=== PATIENT | male | born 1945 | race Caucasian/White ===

== ENCOUNTER 2018-12-11 03:55 | Inpatient (IN) | payer OTHER ==
[2018-12-11 04:18] VITALS: BMI 28.3
[2018-12-11] MEDS ORDERED: ACETAMINOPHEN 1000 MG/100 ML VIAL (NON FORMULARY) IVPB ONE (04:26)
[2018-12-11] MEDS ORDERED: ACETAMINOPHEN INJECTION 100 ML IVPB ONE (04:50)
[2018-12-11 04:55] LABS: BASO % 0.3 % (0-2.0); EOS % 0.2 % (0-4.5); HEMATOCRIT 41.8 % (35.4-49); HEMOGLOBIN 13.6 GM/dL (11.7-16.9); LYMPH % 11.9 % (8-40); MCH 30.1 pg (25.7-33.7); MCHC 32.7 g/dl (32.0-35.9); MEAN CELL VOLUME 92.3 fl (80-96); MEAN PLT VOLUME 7.7 fl (7.5-11.1); NEUT % 82.6 % (42.8-82.8); PLATELET COUNT 260 K/MM3 (134-434); RBC 4.53 M/mm3 (4.00-5.60); RDW 13.5 % (11.9-15.9); WHITE BLOOD COUNT 11.1 K/mm3 (4.0-10.0)
[2018-12-11 05:08] LABS: INR 0.9 (0.83-1.09); PROTHROMBIN TIME (PATIENT) 10.6 SEC (9.7-13.0)
[2018-12-11 05:18] LABS: ALK PHOS 51 U/L (45-117); ANION GAP 11 MMOL/L (8-16); BILIRUBIN,TOTAL 0.3 mg/dL (0.2-1); BLOOD UREA NITROGEN 25 mg/dL (7-18); CHLORIDE 106 mmol/L (98-107); CO2 21 mmol/L (21-32); CREATININE 1.5 mg/dL (0.55-1.3); GLUCOSE,RANDOM 226 mg/dL (74-106); LIPASE 151 U/L (73-393); SGOT/AST 19 U/L (15-37); SGPT/ALT 24 U/L (13-61); SODIUM 138 mmol/L (136-145)
[2018-12-11] MEDS ORDERED: SODIUM CHLORIDE 0.9% 1000 ML INFUS.BAG IV ONE (05:29)
--- NOTE | 2018-12-11 05:41 | PDOC ---
History of Present Illness - General Chief Complaint: Pain, Acute Stated Complaint: LOWER ABD PAIN Time Seen by Provider: 12/11/18 04:16 History Source: Patient Exam Limitations: No Limitations - History of Present Illness Initial Comments: 12/11/18 05:36 73M with PMH of HTN and DM who presents to the ER with complaints of sudden onset LLQ abdominal pain. The patient describes a sharp pain, radiating to his pelvis, without any exacerbating or alleviating factors. He denies nausea, vomiting, fever, chills, melena, hematochezia. He admits to having a cholecystectomy. Past History - Past Medical History Allergies/Adverse Reactions: Allergies Allergy/AdvReac Type Severity Reaction Status Date / Time No Known Allergies Allergy Verified 12/11/18 04:07 Home Medications: Ambulatory Orders Aspirin [Aspirin EC] 81 mg PO DAILY 12/11/18 Finasteride 5 mg PO DAILY 12/11/18 Losartan Potassium [Cozaar -] 50 mg PO DAILY 12/11/18 Metformin HCl [Glucophage] 1,000 mg PO DAILY 12/11/18 Rosuvastatin Calcium [Crestor] 10 mg PO DAILY 12/11/18 Tamsulosin HCl [Flomax] 0.4 mg PO DAILY 12/11/18 COPD: No - Immunization History Immunization Up to Date: (Unknown) - Suicide/Smoking/Psychosocial Hx Smoking History: Never smoked Have you smoked in the past 12 months: No Information on smoking cessation initiated: No Hx Alcohol Use: No Drug/Substance Use Hx: No Review of Systems - Review of Systems Able to Perform ROS?: Yes Comments:: 12/11/18 05:38 GENERAL/CONSTITUTIONAL: No fever or chills. No weakness. HEAD, EYES, EARS, NOSE AND THROAT: No change in vision. No ear pain or discharge. No sore throat. CARDIOVASCULAR: No chest pain, palpitations, or lightheadedness. RESPIRATORY: No cough, wheezing, shortness of breath, or hemoptysis. GASTROINTESTINAL: + for abdominal pain. No nausea, vomiting, diarrhea, or constipation. GENITOURINARY: No dysuria, frequency, hematuria, or change in urination. MUSCULOSKELETAL: No joint or muscle swelling or pain. No neck or back pain. SKIN: No rash or lesions. NEUROLOGIC: No headache, numbness, tingling, focal weakness, loss of consciousness, or change in strength/sensation. Is the patient limited Armenian proficient: No *Physical Exam - Vital Signs Last Vital Signs Temp Pulse Resp BP Pulse Ox 98.1 F 70 22 H 141/61 99 12/11/18 04:04 12/11/18 04:04 12/11/18 04:04 12/11/18 04:04 12/11/18 04:04 - Physical Exam Comments: 12/11/18 05:38 GENERAL: Well developed, well nourished. Awake and alert. No acute distress. HEENT: Normocephalic, atraumatic. Hearing grossly normal. Moist mucous membranes. PERRLA, EOMI. No conjunctival pallor. Sclera are non-icteric. NECK: Supple. Full ROM. No JVD. CARDIOVASCULAR: Regular rate and rhythm. No murmurs, rubs, or gallops. PULMONARY: No evidence of respiratory distress. Lungs clear to auscultation bilaterally. No wheezing, rales or rhonchi. ABDOMINAL: Soft. Diffusely tender, mostly in LLQ. Non-distended. No rebound or guarding. GENITOURINARY: No CVA tenderness bilaterally. MUSCULOSKELETAL: Normal range of motion at all joints. No bony deformities or tenderness. EXTREMITIES: No cyanosis. No clubbing. No edema. No calf tenderness or swelling. SKIN: Warm and dry. Normal capillary refill. No rashes. No jaundice. NEUROLOGICAL: Alert, awake, appropriate. Cranial nerves 2-12 grossly intact. Normal speech. Gait is normal without ataxia. PSYCHIATRIC: Cooperative. Good eye contact. Appropriate mood and affect. ED Treatment Course - LABORATORY CBC & Chemistry Diagram: 12/13/18 06:05 12/13/18 06:05 - ADDITIONAL ORDERS Additional order review: Laboratory Results 12/11/18 12/11/18 12/11/18 04:37 04:37 04:37 PT with INR 10.60 INR 0.90 Sodium 138 Potassium 4.0 Chloride 106 Carbon Dioxide 21 Anion Gap 11 BUN 25 H Creatinine 1.5 H Creat Clearance w eGFR 46.13 Random Glucose 226 H Lactic Acid 5.0 H* Calcium 9.0 Total Bilirubin 0.3 AST 19 ALT 24 Alkaline Phosphatase 51 Total Protein 7.0 Albumin 4.0 Lipase 151 12/11/18 04:37 RBC 4.53 MCV 92.3 MCHC 32.7 RDW 13.5 MPV 7.7 Neutrophils % 82.6 Lymphocytes % 11.9 Monocytes % 5.0 Eosinophils % 0.2 Basophils % 0.3 - RADIOLOGY Radiology Studies Ordered: Category Date Time Status ABDOMEN & PELVIS CT WITH CONTR [CT] Stat CT Scan 12/11/18 05:29 Ordered - Medications Given in the ED: ED Medications Discontinued Medications Generic Name Dose Route Start Last Admin Trade Name Freq PRN Reason Stop Dose Admin Acetaminophen 1,000 mg 12/11/18 04:26 12/11/18 04:57 Ofirmev Injection - IVPB 12/11/18 04:27 1,000 mg ONCE ONE Administration Medical Decision Making - Medical Decision Making 12/11/18 05:39 73M with PMH of HTN and DM who presents to the ED with sudden onset abdominal pain concerning for ischemic bowel. Will send labs and lactate. CT pending. UA pending. Lactate of 5.0. Will hydrate and order CT+ of abdomen. 12/11/18 07:03 Pt signed out to Dr. Lopez for further evaluation. *DC/Admit/Observation/Transfer Diagnosis at time of Disposition: Renal colic - Discharge Dispostion Disposition: HOME Condition at time of disposition: Improved Decision to Admit order: Yes - Referrals - Patient Instructions - Post Discharge Activity
[2018-12-11 05:52] LABS: EPI CELLS 0.2 /HPF (0-5/HPF); PH,URINE 5.5 (5.0-8.0); URINE APPEARANCE CLEAR; URINE BILIRUBIN NEGATIVE (NEGATIVE); URINE CASTS 5 /lpf (0-8); URINE COLOR YELLOW; URINE GLUCOSE (UA) 3+ (NEGATIVE); URINE KETONE TRACE (NEGATIVE); URINE LEUK ESTERASE NEGATIVE (NEGATIVE); URINE NITRITE NEGATIVE (NEGATIVE); URINE PROTEIN NEGATIVE (NEGATIVE); URINE UROBILINOGEN 0.2 mg/dL (0.2-1.0); URINE WBC 1 /hpf (0-5)
[2018-12-11 06:37] LABS: URINE RBC 75-80 /hpf (0-4)
[2018-12-11 06:38] LABS: YEAST RARE (NEGATIVE)
[2018-12-11] MEDS ORDERED: morphine CARPU-JECT 4 MG/1 ML DISP.SYRIN IVPUSH ONE (11:17)
--- NOTE | 2018-12-11 12:36 | PDOC ---
Documentation entered by Mahi Kirby SCRIBE, acting as scribe for Candice Lopez MD. Candice Lopez MD: This documentation has been prepared by the waldoibeMirta Victoria, SCRIBE, under my direction and personally reviewed by me in its entirety. I confirm that the documentation accurately reflects all work, treatment, procedures, and medical decision making performed by me. *Physical Exam - Vital Signs Last Vital Signs Temp Pulse Resp BP Pulse Ox 98.8 F 86 20 144/61 96 12/11/18 06:51 12/11/18 06:51 12/11/18 06:51 12/11/18 06:51 12/11/18 06:51 ED Treatment Course - LABORATORY CBC & Chemistry Diagram: 12/11/18 04:37 12/11/18 04:37 - ADDITIONAL ORDERS Additional order review: Laboratory Results 12/11/18 12/11/18 12/11/18 07:34 07:18 05:35 PT with INR INR Sodium Potassium Chloride Carbon Dioxide Anion Gap BUN Creatinine Creat Clearance w eGFR Random Glucose Lactic Acid 2.5 H* Calcium Total Bilirubin AST ALT Alkaline Phosphatase Total Protein Albumin Lipase Urine Color Yellow Urine Appearance Clear Urine pH 5.5 Ur Specific [place] 1.027 Urine Protein Negative Urine Glucose (UA) 3+ H Urine Ketones Trace H Urine Blood 3+ H Urine Nitrite Negative Urine Bilirubin Negative Urine Urobilinogen 0.2 Ur Leukocyte Esterase Negative Urine WBC (Auto) 1 Urine RBC (Auto) 75-80 Urine Casts (Auto) 5 U Epithel Cells (Auto) 0.2 Urine Bacteria (Auto) 2.0 Urine Yeast (Auto) Rare Blood Type O POSITIVE Antibody Screen 12/11/18 12/11/18 12/11/18 04:53 04:37 04:37 PT with INR INR Sodium 138 Potassium 4.0 Chloride 106 Carbon Dioxide 21 Anion Gap 11 BUN 25 H Creatinine 1.5 H Creat Clearance w eGFR 46.13 Random Glucose 226 H Lactic Acid 5.0 H* Calcium 9.0 Total Bilirubin 0.3 AST 19 ALT 24 Alkaline Phosphatase 51 Total Protein 7.0 Albumin 4.0 Lipase 151 Urine Color Urine Appearance Urine pH Ur Specific [place] Urine Protein Urine Glucose (UA) Urine Ketones Urine Blood Urine Nitrite Urine Bilirubin Urine Urobilinogen Ur Leukocyte Esterase Urine WBC (Auto) Urine RBC (Auto) Urine Casts (Auto) U Epithel Cells (Auto) Urine Bacteria (Auto) Urine Yeast (Auto) Blood Type O POSITIVE Antibody Screen Negative 12/11/18 04:37 PT with INR 10.60 INR 0.90 Sodium Potassium Chloride Carbon Dioxide Anion Gap BUN Creatinine Creat Clearance w eGFR Random Glucose Lactic Acid Calcium Total Bilirubin AST ALT Alkaline Phosphatase Total Protein Albumin Lipase Urine Color Urine Appearance Urine pH Ur Specific [place] Urine Protein Urine Glucose (UA) Urine Ketones Urine Blood Urine Nitrite Urine Bilirubin Urine Urobilinogen Ur Leukocyte Esterase Urine WBC (Auto) Urine RBC (Auto) Urine Casts (Auto) U Epithel Cells (Auto) Urine Bacteria (Auto) Urine Yeast (Auto) Blood Type Antibody Screen 12/11/18 04:37 RBC 4.53 MCV 92.3 MCHC 32.7 RDW 13.5 MPV 7.7 Neutrophils % 82.6 Lymphocytes % 11.9 Monocytes % 5.0 Eosinophils % 0.2 Basophils % 0.3 - RADIOLOGY Radiograph Interpretation: 12/11/18 11:23 Abdomen/Pelvis CTA as reviewed by Dr. Wilkerson reports distal ureter stone on the left creating left hydronephrosis. Infiltration of pancreatic head fat is noted. Status post cholecystectomy with mild dilatation of the extrahepatic bile duct, likely surgically related. Hepatic steatosis. - Medications Given in the ED: ED Medications Discontinued Medications Generic Name Dose Route Start Last Admin Trade Name Freq PRN Reason Stop Dose Admin Acetaminophen 1,000 mg 12/11/18 04:26 12/11/18 04:57 Ofirmev Injection - IVPB 12/11/18 04:27 1,000 mg ONCE ONE Administration Sodium Chloride 1,000 ml 12/11/18 05:29 12/11/18 05:36 Normal Saline - IV 12/11/18 05:30 1,000 ml ONCE ONE Administration Medical Decision Making - Medical Decision Making 12/11/18 11:45 Phone call [address] to Dr[address] Ohara (urologist gas station service attendant) and case was discussed. 12:11 Pt with persistent pain on evaluation, ordered morphine 4mg IV. In light of large obstructing stone, persistent pain, will admit pt Micro[facility] sent to [facility] and case was discussed, pt accepted for admission to Dr. Tripp Case discussed in detail with admitting physician Dr. Grijalav including history, physical exam and ancillary studies. Admitting physician has assumed care for the patient, will follow all pending diagnostics and will complete the evaluation and treatment. *DC/Admit/Observation/Transfer Diagnosis at time of Disposition: Renal colic - Discharge Dispostion Condition at time of disposition: Fair Decision to Admit order Date/Time: Decision to Admit Order Category Date Time Status Decision to Admit to Hospital Routine Admission 12/11/18 07:19 Active - Referrals Referrals: Pete Hartman [Primary Care Provider] - - Patient Instructions - Post Discharge Activity - Attestations Physician Attestion: 12/11/18 12:36 I, Dr. Candice Lopez MD, attest that this document has been prepared under my direction and personally reviewed by me in its entirety. I further attest, that it accurately reflects all work, treatment, procedures and medical decision -making performed by me.
[2018-12-11] MEDS ORDERED: morphine SULFATE 4 MG/ML VIAL IVPUSH PRN (12:57)
[2018-12-11] MEDS ORDERED: ACETAMINOPHEN 325 MG TABLET (FP) PO PRN (12:58)
--- NOTE | 2018-12-11 13:11 | HP ---
CHIEF COMPLAINT: LLQ pain x 1/2 day PCP: Dr. Hartman HISTORY OF PRESENT ILLNESS: 73 y/o M with PMH HTN, HLD, NIDDM, past nephrolithiasis, who presents to the ED c/o sudden onset LLQ pain that started last night. As per pt, he was resting in his bed at 11PM when he developed sudden LLQ pain. States that it was constant, 10/10, and with radiation to his L groin. Was not a/w hematuria, urinary frequency or dysuria. Due to severe pain, he came to the hospital for further evaluation. States that it was also a/w SOB "when he has the pain." After receiving morphine and IV tylenol in the ED, his pain has largely resolved. States it is only currently 5/10, appears comfortable. Denies DOLAN, fever, chills , chest pain or pressure, or changes in bowel function. Of note, pt states he has had two kidney stones in the past. Does not recall which side they were on. Believes that he had a lithotripsy done at [facility]. Does not follow with a urologist. At baseline, pt ambulates on own independently and lives with family at home. 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 with REVIEW OF SYSTEMS CONSTITUTIONAL: Absent: fever, chills, diaphoresis, generalized weakness, malaise, loss of appetite, weight change HEENT: Absent: rhinorrhea, nasal congestion, throat pain, throat swelling, difficulty swallowing, mouth swelling, ear pain, eye pain, visual changes CARDIOVASCULAR: Absent: chest pain, syncope, palpitations, irregular heart rate, lightheadedness , peripheral edema RESPIRATORY: Absent: cough, shortness of breath, dyspnea with exertion, orthopnea, wheezing, stridor, hemoptysis GASTROINTESTINAL: Absent: abdominal pain, abdominal distension, nausea, vomiting, diarrhea, constipation, melena, hematochezia GENITOURINARY: +flank pain Absent: dysuria, frequency, urgency, hesitancy, hematuria, flank pain, genital pain MUSCULOSKELETAL: Absent: myalgia, arthralgia, joint swelling, back pain, neck pain SKIN: Absent: rash, itching, pallor HEMATOLOGIC/IMMUNOLOGIC: Absent: easy bleeding, easy bruising, lymphadenopathy, frequent infections ENDOCRINE: Absent: unexplained weight gain, unexplained weight loss, heat intolerance, cold intolerance NEUROLOGIC: Absent: headache, focal weakness or paresthesias, dizziness, unsteady gait, seizure, mental status changes, bladder or bowel incontinence PSYCHIATRIC: Absent: anxiety, depression, suicidal or homicidal ideation, hallucinations. PHYSICAL EXAMINATION Vital Signs 12/11/18 12/11/18 04:04 06:51 Temperature 98.1 F 98.8 F Pulse Rate 70 Pulse Rate [ 86 Left Radial] Respiratory 22 H 20 Rate Blood Pressure 141/61 Blood Pressure 144/61 [Left Arm] O2 Sat by Pulse 99 96 Oximetry (%) GENERAL: Pleasant. Awake, alert, and fully oriented, in no acute distress. HEAD: Normal with no signs of trauma. EYES: Pupils equal, round and reactive to light, extraocular movements intact, sclera anicteric, conjunctiva clear. EARS, NOSE, THROAT: Ears normal, nares patent, oropharynx clear without exudates. Moist mucous membranes. NECK: Normal range of motion, supple LUNGS: Breath sounds equal, clear to auscultation bilaterally. No wheezes, and no crackles. No accessory muscle use. HEART: Regular rate and rhythm, normal S1 and S2. +systolic murmur RUSB ABDOMEN: Soft, obese. not distended, normoactive bowel sounds, no guarding. + mild TTP L flank MUSCULOSKELETAL: No CVA tenderness. LOWER EXTREMITIES: 2+ pt pulses, warm, well-perfused. No calf tenderness. No peripheral edema. NEUROLOGICAL: Cranial nerves II-XII intact. Normal speech. Laboratory Results 12/11/18 12/11/18 12/11/18 04:37 04:37 04:37 WBC 11.1 H Hgb 13.6 Hct 41.8 Plt Count 260 Sodium 138 Potassium 4.0 Chloride 106 BUN 25 H Creatinine 1.5 H Random Glucose 226 H Lactic Acid 5.0 H* Urine Glucose (UA) Urine RBC (Auto) 12/11/18 12/11/18 05:35 07:18 Lactic Acid 2.5 H* Ur Specific [place] 1.027 Urine Protein Negative Urine Glucose (UA) 3+ H Urine Ketones Trace H Urine Blood 3+ H Urine Nitrite Negative Urine Bilirubin Negative Urine RBC (Auto) 75-80 Abd/Pelvis CTA: patent mesenteric vessels. +calc granulomas RML. +L hydro and stone UVJ 6mm. subcortical R cyst. hepatic steatosis. hiatal hernia. diverticulosis. +infiltration peripancreatic head fat ASSESSMENT/PLAN: 73 y/o M with PMH HTN, HLD, NIDDM, past nephrolithiasis, who presents to the ED c/o sudden onset LLQ pain that started last night. #L nephrolithiasis, obst stone with L hydronephrosis -6mm UVJ stone w L hydro -will place acosta to aid in decompression -IV NS 125 cc/hr -c/w flomax, finasteride -strain all urine -f/u lactic. trending down. 5>2.5>2.2 -NPO after MN, T+S, coags. in case of procedure. awaiting uro recs -uro consult: Dr. Ohara -pain control with morphine 1mg q4h PRN, tylenol PRN #TACOS likely 2/2 obstruction -should be relieved after stone passes or lithotripsy -cont to monitor Cr . c/w IVF as above -hold ARB #HLD -c/w rosuvastatin #NIDDM -hold metformin -c/w ISS, BGM ACHS #F/E/N IV NS 125 cc/hr continue to follow lytes NPO after MN in case of procedure. awaiting uro recs #PPX DVT: SCD's. as above #Dispo admit to med-surg Visit type - Emergency Visit Emergency Visit: Yes ED Registration Date: 12/11/18 Care time: The patient presented to the Emergency Department on the above date and was hospitalized for further evaluation of their emergent condition. - New Patient This patient is new to me today: Yes Date on this admission: 12/11/18 - Critical Care Critical Care patient: No
--- NOTE | 2018-12-11 14:04 | PN ---
Teaching Attending Note Name of Resident: Ana Grijalva ATTENDING PHYSICIAN STATEMENT I saw and evaluated the patient. I reviewed the resident's note and discussed the case with the resident. I agree with the resident's findings and plan as documented. SUBJECTIVE: Patient is a 73y/o with PMHx of HTN, HLD, NIDDM, nephrolithiasis, who presents to the ED c/o having sudden onset of LLQ pain that started last night. As per patient had two kidney stones in the past with hx of lithotripsy at [facility]. He has not followed with any urologist afterward. Patient feels better at this time, no fever or pain, no shortness of breath. OBJECTIVE: Vital Signs Temperature 98.8 F 12/11/18 06:51 Pulse Rate 86 12/11/18 06:51 Respiratory Rate 20 12/11/18 06:51 Blood Pressure 144/61 12/11/18 06:51 O2 Sat by Pulse Oximetry (%) 96 12/11/18 06:51 GENERAL: Pleasant. Awake, alert, and fully oriented, in no acute distress. HEAD: Normal with no signs of trauma. EYES: Pupils equal, round and reactive to light, extraocular movements intact, sclera anicteric, conjunctiva clear. EARS, NOSE, THROAT: Ears normal, oropharynx clear without exudates. Moist mucous membranes. NECK: Normal range of motion, supple LUNGS: Breath sounds equal, clear to auscultation bilaterally. No wheezes, and no crackles. No accessory muscle use. HEART: Regular rate and rhythm, normal S1 and S2. +systolic murmur RUSB ABDOMEN: Soft, obese. not distended, normoactive bowel sounds, no guarding. MUSCULOSKELETAL: left sided CVA tenderness. LOWER EXTREMITIES: 2+ pt pulses, warm, well-perfused. No calf tenderness. No peripheral edema. NEUROLOGICAL: Cranial nerves II-XII intact. Normal speech. CBCD WBC 11.1 K/mm3 (4.0-10.0) H 12/11/18 04:37 RBC 4.53 M/mm3 (4.00-5.60) 12/11/18 04:37 Hgb 13.6 GM/dL (11.7-16.9) 12/11/18 04:37 Hct 41.8 % (35.4-49) 12/11/18 04:37 MCV 92.3 fl (80-96) 12/11/18 04:37 MCHC 32.7 g/dl (32.0-35.9) 12/11/18 04:37 RDW 13.5 % (11.9-15.9) 12/11/18 04:37 Plt Count 260 K/MM3 (134-434) 12/11/18 04:37 MPV 7.7 fl (7.5-11.1) 12/11/18 04:37 CMP Sodium 138 mmol/L (136-145) 12/11/18 04:37 Potassium 4.0 mmol/L (3.5-5.1) 12/11/18 04:37 Chloride 106 mmol/L (98-107) 12/11/18 04:37 Carbon Dioxide 21 mmol/L (21-32) 12/11/18 04:37 Anion Gap 11 MMOL/L (8-16) 12/11/18 04:37 BUN 25 mg/dL (7-18) H 12/11/18 04:37 Creatinine 1.5 mg/dL (0.55-1.3) H 12/11/18 04:37 Creat Clearance w eGFR 46.13 (>60) 12/11/18 04:37 Random Glucose 226 mg/dL (74-106) H 12/11/18 04:37 Calcium 9.0 mg/dL (8.5-10.1) 12/11/18 04:37 Total Bilirubin 0.3 mg/dL (0.2-1) 12/11/18 04:37 AST 19 U/L (15-37) 12/11/18 04:37 ALT 24 U/L (13-61) 12/11/18 04:37 Alkaline Phosphatase 51 U/L (45-117) 12/11/18 04:37 Total Protein 7.0 g/dl (6.4-8.2) 12/11/18 04:37 Albumin 4.0 g/dl (3.4-5.0) 12/11/18 04:37 Current Medications Generic Name Dose Route Start Last Admin Trade Name Freq PRN Reason Stop Dose Admin Acetaminophen 650 mg 12/11/18 12:58 Tylenol - PO Q6H PRN PAIN LEVEL 6-10 Finasteride 5 mg 12/12/18 10:00 Proscar - PO DAILY GIANFRANCO Sodium Chloride 1,000 mls @ 125 mls/hr 12/11/18 13:00 Normal Saline - IV ASDIR [facility] Insulin Aspart 1 vial 12/11/18 16:30 Novolog Vial Sliding Scale - SQ ACHS [facility] Protocol Morphine Sulfate 1 mg 12/11/18 12:57 Morphine Sulfate IVPUSH Q4H PRN PAIN LEVEL 7 - 10 Rosuvastatin Calcium 10 mg 12/12/18 22:00 Crestor - PO HS [facility] Tamsulosin HCl 0.4 mg 12/11/18 13:00 Flomax - PO DAILY@0830 [facility] Home Medications Medication Instructions Recorded Aspirin [Aspirin EC] 81 mg PO DAILY 12/11/18 Finasteride 5 mg PO DAILY 12/11/18 Losartan Potassium [Cozaar -] 50 mg PO DAILY 12/11/18 Metformin HCl [Glucophage] 1,000 mg PO DAILY 12/11/18 Rosuvastatin Calcium [Crestor] 10 mg PO DAILY 12/11/18 Tamsulosin HCl [Flomax] 0.4 mg PO DAILY 12/11/18 Abd/Pelvis CTA: patent mesenteric vessels. +calc granulomas RML. +L hydro and stone UVJ 6mm. subcortical R cyst. hepatic steatosis. hiatal hernia. diverticulosis. +infiltration peripancreatic head fat ASSESSMENT/PLAN: Patient is a 73yo male with PMHx of HTN, HLD, NIDDM,nephrolithiasis s/p lithotripsy at [facility]. who presents to the ED c/o sudden onset LLQ pain that started last night. . #Acute left nephrolithiasis with obstructing stone on CTA of abdomens and pelvis causing L hydronephrosis: 6mm UVJ stone , acosta catheter, IVF, continue flomax, finasteride, strain all urine, Trend lactic. trending down. 5>2.5>2.2, Dr. menjivar for consult pain control with morphine 1mg q4h PRN, tylenol PRN, NPO after MN, for possible lithotripsy. #TACOS most likely due to obstruction due to 6mm kidney stone. will hold ARB, and monitor the creatinine #HLD continue crestor #T2dm: hold metformin, BGM q4h, NPO after MN. DVT Px: SCDs for now.
--- NOTE | 2018-12-11 14:22 | CON.GU ---
Consult Consult Specialty:: Urology Reason for Consultation:: Left renal colic - History of Present Illness Chief Complaint: left flank pain History of Present Illness: 73 yo male w hx stones w left renal colic No n/v no f/c/ns Voiding spontaneously - Alcohol/Substance Use Hx Alcohol Use: No - Smoking History Smoking history: Never smoked Have you smoked in the past 12 months: No Home Medications - Allergies Allergies/Adverse Reactions: Allergies Allergy/AdvReac Type Severity Reaction Status Date / Time No Known Allergies Allergy Verified 12/11/18 04:07 - Home Medications Home Medications: Ambulatory Orders Aspirin [Aspirin EC] 81 mg PO DAILY 12/11/18 Finasteride 5 mg PO DAILY 12/11/18 Losartan Potassium [Cozaar -] 50 mg PO DAILY 12/11/18 Metformin HCl [Glucophage] 1,000 mg PO DAILY 12/11/18 Rosuvastatin Calcium [Crestor] 10 mg PO DAILY 12/11/18 Tamsulosin HCl [Flomax] 0.4 mg PO DAILY 12/11/18 Physical Exam- Vital Signs: Vital Signs Temperature 98.8 F 12/11/18 06:51 Pulse Rate 86 12/11/18 06:51 Respiratory Rate 20 12/11/18 06:51 Blood Pressure 144/61 12/11/18 06:51 O2 Sat by Pulse Oximetry (%) 96 12/11/18 06:51 Labs: CBC, BMP 12/11/18 04:37 12/11/18 04:37 Imaging - Results Cat Scan: Report Reviewed Problem List - Problems (1) Renal colic Assessment/Plan: 73 yo male w left renal colic from 6 mm stone No sepsis at this time Discussed likely will not pass stone however will discuss further in am Follow for signs of sepsis IVF analgesics strain urine Code(s): N23 - UNSPECIFIED RENAL COLIC
[2018-12-11] MEDS ORDERED: TAMSULOSIN HCL 0.4 MG CAP ONE (14:42)
[2018-12-11] MEDS: SODIUM CHLORIDE 1,000 ML IV SCH (14:48)
[2018-12-11] MEDS: TAMSULOSIN HCL 0.4 MG CAP PO SCH (14:48)
[2018-12-11 15:45] LABS: INR 1.02 (0.83-1.09)
[2018-12-11 15:48] LABS: ACTIVATED PTT 27.7 SECONDS (25.2-36.5)
[2018-12-11] MEDS ORDERED: INSULIN (NOVOLOG) ASPART 100 UNITS/ML 10ML VIAL ONE (17:49)
[2018-12-11] MEDS: INSULIN SLIDING SCALE (NOVOLOG) 1 VIAL SQ SCH ×2 (17:51→21:39)
[2018-12-12] MEDS: INSULIN SLIDING SCALE (NOVOLOG) 1 VIAL SQ SCH ×4 (06:12→21:24)
--- NOTE | 2018-12-12 07:09 | PN ---
Physical Exam: SUBJECTIVE: Patient seen and examined at bedside. no events overnight. NPO. pain improved. has not passed stone yet. no hematuria or blood in stools noted. denies fever, cp, sob. OBJECTIVE: Vital Signs Period Temp Pulse Resp BP Sys/Lund Pulse Ox Last 24 Hr 97.8 F-98.7 F 67-79 18-20 104-124/50-70 96-99 GENERAL: Pleasant. AOX3 NAD HEAD: NCAT EYES: Pupils equal, round and reactive to light, extraocular movements intact, sclera anicteric, conjunctiva clear. EARS, NOSE, THROAT: Ears normal, oropharynx clear without exudates. MMM NECK: Normal range of motion, supple LUNGS: CTAB HEART: RRR, normal S1 and S2. +systolic murmur RUSB ABDOMEN: Soft, obese. not distended, normoactive bowel sounds, no guarding. MUSCULOSKELETAL: left sided CVA tenderness. LOWER EXTREMITIES: 2+ pt pulses, warm, well-perfused. No calf tenderness. No peripheral edema. NEUROLOGICAL: Cranial nerves II-XII intact. Normal speech. Laboratory Results - last 24 hr 12/11/18 12/11/18 12/11/18 07:18 07:34 13:29 PT with INR INR PTT (Actin FS) POC Glucometer Lactic Acid 2.5 H* 2.2 H* Blood Type O POSITIVE 12/11/18 12/11/18 12/11/18 15:00 17:46 19:30 PT with INR 12.00 INR 1.02 PTT (Actin FS) 27.7 POC Glucometer 160 Lactic Acid 2.1 H Blood Type 12/11/18 12/12/18 21:38 05:58 PT with INR INR PTT (Actin FS) POC Glucometer 138 127 Lactic Acid Blood Type Active Medications Generic Name Dose Route Start Last Admin Trade Name Freq PRN Reason Stop Dose Admin Acetaminophen 650 mg 12/11/18 12:58 Tylenol - PO Q6H PRN PAIN LEVEL 6-10 Finasteride 5 mg 12/12/18 10:00 Proscar - PO DAILY GIANFRANCO Sodium Chloride 1,000 mls @ 125 mls/hr 12/11/18 13:00 12/11/18 14:48 Normal Saline - IV 125 mls/hr ASDIR GIANFRANCO Administration Insulin Aspart 1 vial 12/11/18 16:30 12/12/18 06:12 Novolog Vial Sliding Scale - SQ Not Given ACHS [facility] [place] Protocol Morphine Sulfate 1 mg 12/11/18 12:57 Morphine Sulfate IVPUSH Q4H PRN PAIN LEVEL 7 - 10 Rosuvastatin Calcium 10 mg 12/12/18 22:00 Crestor - PO HS GIANFRANCO Tamsulosin HCl 0.4 mg 12/11/18 13:00 12/11/18 14:48 Flomax - PO 0.4 mg DAILY@0830 GIANFRANCO Administration Abd/Pelvis CTA: patent mesenteric vessels. +calc granulomas RML. +L hydro and stone UVJ 6mm. subcortical R cyst. hepatic steatosis. hiatal hernia. diverticulosis. +infiltration peripancreatic head fat ASSESSMENT/PLAN: 73 y/o M with PMH HTN, HLD, NIDDM, nephrolithiasis s/p lithotripsy at [facility], who presents to the ED c/o sudden onset LLQ pain that started last night. #L nephrolithiasis, obst stone with L hydronephrosis -6mm UVJ stone w L hydro -acosta to aid in decompression -IV NS 125 cc/hr -c/w flomax, finasteride -strain all urine -f/u lactic. trending down. 5>2.5>2.2....2.1 -NPO, T+S, coags. in case of procedure. awaiting uro recs -uro consult: Dr. Ohara/Rob -pain control with morphine 1mg q4h PRN, tylenol PRN #TACOS likely 2/2 obstruction - improving, Cr downtreding -should be relieved after stone passes or lithotripsy -cont to monitor Cr. c/w IVF as above -hold ARB #HLD -c/w rosuvastatin #NIDDM -hold metformin -c/w ISS, BGM ACHS #F/E/N IV NS 125 cc/hr continue to follow lytes NPO in case of procedure. awaiting uro recs #PPX DVT: SCD's. as above #Dispo med-surg Visit type - Emergency Visit Emergency Visit: Yes ED Registration Date: 12/11/18 Care time: The patient presented to the Emergency Department on the above date and was hospitalized for further evaluation of their emergent condition. - New Patient This patient is new to me today: Yes Date on this admission: 12/12/18 - Critical Care Critical Care patient: No
[2018-12-12 07:40] LABS: BASO % 0.8 % (0-2.0); EOS % 2.6 % (0-4.5); HEMATOCRIT 37.7 % (35.4-49); HEMOGLOBIN 12.4 GM/dL (11.7-16.9); LYMPH % 47.6 % (8-40); MCH 30.1 pg (25.7-33.7); MCHC 32.8 g/dl (32.0-35.9); MEAN CELL VOLUME 91.6 fl (80-96); MEAN PLT VOLUME 7.7 fl (7.5-11.1); MONO % 9.6 % (3.8-10.2); NEUT % 39.4 % (42.8-82.8); PLATELET COUNT 241 K/MM3 (134-434); RBC 4.11 M/mm3 (4.00-5.60); RDW 13.7 % (11.9-15.9); WHITE BLOOD COUNT 6.9 K/mm3 (4.0-10.0)
[2018-12-12 07:50] LABS: CALCIUM 8.2 mg/dL (8.5-10.1); MAGNESIUM 2.2 mg/dL (1.8-2.4); PHOSPHOROUS 2.4 mg/dL (2.5-4.9)
[2018-12-12] MEDS: FINASTERIDE 5 MG TABLET (FP) PO SCH (09:34)
[2018-12-12] MEDS: TAMSULOSIN HCL 0.4 MG CAP PO SCH (09:34)
[2018-12-12] MEDS: SODIUM CHLORIDE 1,000 ML IV SCH ×2 (14:00→21:27)
--- NOTE | 2018-12-12 17:16 | PN ---
Teaching Attending Note Name of Resident: Amilcar Bradley ATTENDING PHYSICIAN STATEMENT I saw and evaluated the patient. I reviewed the resident's note and discussed the case with the resident. I agree with the resident's findings and plan as documented. SUBJECTIVE: Patient is feeling better with no acute distress. No nausea or vomiting. OBJECTIVE: Vital Signs Temperature 98.2 F 12/12/18 09:12 Pulse Rate 64 12/12/18 09:12 Respiratory Rate 20 12/12/18 09:12 Blood Pressure 125/62 12/12/18 09:12 O2 Sat by Pulse Oximetry (%) 96 12/11/18 21:00 GENERAL: Pleasant. Awake, alert, and fully oriented, in no acute distress. HEAD: Normal with no signs of trauma. EYES: Pupils equal, round and reactive to light, extraocular movements intact, sclera anicteric, conjunctiva clear. EARS, NOSE, THROAT: Ears normal, oropharynx clear without exudates. Moist mucous membranes. NECK: Normal range of motion, supple LUNGS: Breath sounds equal, clear to auscultation bilaterally. No W/C/R . No accessory muscle use. HEART: Regular rate and rhythm, normal S1 and S2. +systolic murmur RUSB ABDOMEN: Soft, obese. not distended, normoactive bowel sounds, no guarding. MSK: no CVA tenderness today EXTREMITIES: 2+ pt pulses, warm, well-perfused. No calf tenderness. No peripheral edema. NEUROLOGICAL: Cranial nerves II-XII intact. Normal speech. CBCD WBC 6.9 K/mm3 (4.0-10.0) 12/12/18 06:10 RBC 4.11 M/mm3 (4.00-5.60) 12/12/18 06:10 Hgb 12.4 GM/dL (11.7-16.9) 12/12/18 06:10 Hct 37.7 % (35.4-49) 12/12/18 06:10 MCV 91.6 fl (80-96) 12/12/18 06:10 MCHC 32.8 g/dl (32.0-35.9) 12/12/18 06:10 RDW 13.7 % (11.9-15.9) 12/12/18 06:10 Plt Count 241 K/MM3 (134-434) 12/12/18 06:10 MPV 7.7 fl (7.5-11.1) 12/12/18 06:10 CMP Sodium 143 mmol/L (136-145) 12/12/18 06:10 Potassium 4.0 mmol/L (3.5-5.1) 12/12/18 06:10 Chloride 112 mmol/L (98-107) H 12/12/18 06:10 Carbon Dioxide 25 mmol/L (21-32) 12/12/18 06:10 Anion Gap 6 MMOL/L (8-16) L 12/12/18 06:10 BUN 20 mg/dL (7-18) H 12/12/18 06:10 Creatinine 1.0 mg/dL (0.55-1.3) 12/12/18 06:10 Creat Clearance w eGFR 46.13 (>60) 12/11/18 04:37 Random Glucose 116 mg/dL (74-106) H 12/12/18 06:10 Calcium 8.2 mg/dL (8.5-10.1) L 12/12/18 06:10 Total Bilirubin 0.3 mg/dL (0.2-1) 12/11/18 04:37 AST 19 U/L (15-37) 12/11/18 04:37 ALT 24 U/L (13-61) 12/11/18 04:37 Alkaline Phosphatase 51 U/L (45-117) 12/11/18 04:37 Total Protein 7.0 g/dl (6.4-8.2) 12/11/18 04:37 Albumin 4.0 g/dl (3.4-5.0) 12/11/18 04:37 Current Medications Generic Name Dose Route Start Last Admin Trade Name Freq PRN Reason Stop Dose Admin Acetaminophen 650 mg 12/11/18 12:58 Tylenol - PO Q6H PRN PAIN LEVEL 6-10 Finasteride 5 mg 12/12/18 10:00 12/12/18 09:34 Proscar - PO 5 mg DAILY GIANFRANCO Administration Sodium Chloride 1,000 mls @ 125 mls/hr 12/11/18 13:00 12/12/18 14:00 Normal Saline - IV 125 mls/hr ASDIR GIANFRANCO Administration Insulin Aspart 1 vial 12/11/18 16:30 12/12/18 17:13 Novolog Vial Sliding Scale - SQ Not Given ACHS GIANFRANCO Protocol Morphine Sulfate 1 mg 12/11/18 12:57 Morphine Sulfate IVPUSH Q4H PRN PAIN LEVEL 7 - 10 Rosuvastatin Calcium 10 mg 12/12/18 22:00 Crestor - PO HS [facility] Tamsulosin HCl 0.4 mg 12/11/18 13:00 12/12/18 09:34 Flomax - PO 0.4 mg DAILY@0830 [facility] Administration Home Medications Medication Instructions Recorded Aspirin [Aspirin EC] 81 mg PO DAILY 12/11/18 Finasteride 5 mg PO DAILY 12/11/18 Losartan Potassium [Cozaar -] 50 mg PO DAILY 12/11/18 Metformin HCl [Glucophage] 1,000 mg PO DAILY 12/11/18 Rosuvastatin Calcium [Crestor] 10 mg PO DAILY 12/11/18 Tamsulosin HCl [Flomax] 0.4 mg PO DAILY 12/11/18 Abd/Pelvis CTA: patent mesenteric vessels. +calc granulomas RML. +L hydro and stone UVJ 6mm. subcortical R cyst. hepatic steatosis. hiatal hernia. diverticulosis. positive for infiltration peripancreatic head fat ASSESSMENT/PLAN: Patient is a 73yo male with PMHx of HTN, HLD, NIDDM, nephrolithiasis s/p lithotripsy at [facility]. who presents to the ED c/o sudden onset LLQ pain that started last night. #Acute left nephrolithiasis with obstructing stone on CTA of abdomens and pelvis causing L hydronephrosis: 6mm UVJ stone , acosta catheter, IVF, continue flomax, finasteride, strain all urine, Trend lactic. trending down. 5>2.5>2.2-- > 1.0. seen by urologist. possible Lithotripsy as per Urologist. pain control with morphine 1mg q4h PRN, tylenol PRN, NPO after MN, for possible lithotripsy. #TACOS most likely due to obstruction due to 6mm kidney stone. will hold ARB, and monitor the creatinine #HLD continue crestor #T2dm: hold metformin, BGM q4h, NPO after MN. DVT Px: SCDs for now. discharge in am if no further pain.
[2018-12-12] MEDS ORDERED: ROSUVASTATIN CA 10 MG TABLET (FP) PO SCH (22:00)
[2018-12-13] MEDS: SODIUM CHLORIDE 1,000 ML IV SCH (05:37)
[2018-12-13] MEDS: INSULIN SLIDING SCALE (NOVOLOG) 1 VIAL SQ SCH ×2 (06:01→12:10)
[2018-12-13 07:42] LABS: HEMATOCRIT 38.6 % (35.4-49); HEMOGLOBIN 12.8 GM/dL (11.7-16.9); MCH 30.3 pg (25.7-33.7); MCHC 33.1 g/dl (32.0-35.9); MEAN CELL VOLUME 91.7 fl (80-96); MEAN PLT VOLUME 7.7 fl (7.5-11.1); PLATELET COUNT 246 K/MM3 (134-434); RBC 4.21 M/mm3 (4.00-5.60); RDW 13.8 % (11.9-15.9); WHITE BLOOD COUNT 7.8 K/mm3 (4.0-10.0)
[2018-12-13 08:02] LABS: CALCIUM 8.1 mg/dL (8.5-10.1); CREATININE 0.9 mg/dL (0.55-1.3); MAGNESIUM 2.1 mg/dL (1.8-2.4); PHOSPHOROUS 2.2 mg/dL (2.5-4.9); POTASSIUM 4.4 mmol/L (3.5-5.1)
[2018-12-13 08:45] VITALS: BP 129/61; PULSE 64; TEMP 98.7
[2018-12-13] MEDS: FINASTERIDE 5 MG TABLET (FP) PO SCH (09:25)
[2018-12-13] MEDS: TAMSULOSIN HCL 0.4 MG CAP PO SCH (09:25)
--- NOTE | 2018-12-13 11:09 | DS ---
Physical Exam: SUBJECTIVE: Patient seen and examined at bedside. no events overnight. pain improved. has not passed stone yet. no hematuria or blood in stools noted. denies fever, cp, sob. seen by uro, no intervention at this time will f/u outpt OBJECTIVE: Vital Signs Period Temp Pulse Resp BP Sys/Lund Pulse Ox Last 24 Hr 98.1 F-98.7 F 64-83 20-20 122-134/61-99 PHYSICAL EXAM GENERAL: Pleasant. AOX3 NAD HEAD: NCAT EYES: Pupils equal, round and reactive to light, extraocular movements intact, sclera anicteric, conjunctiva clear. EARS, NOSE, THROAT: Ears normal, oropharynx clear without exudates. MMM NECK: Normal range of motion, supple LUNGS: CTAB HEART: RRR, normal S1 and S2. +systolic murmur RUSB ABDOMEN: Soft, obese. not distended, normoactive bowel sounds, no guarding. MUSCULOSKELETAL: left sided CVA tenderness. LOWER EXTREMITIES: 2+ pt pulses, warm, well-perfused. No calf tenderness. No peripheral edema. NEUROLOGICAL: Cranial nerves II-XII intact. Normal speech. LABS Laboratory Results - last 24 hr 12/12/18 12/12/18 12/12/18 11:32 16:53 20:41 WBC RBC Hgb Hct MCV MCH MCHC RDW Plt Count MPV Sodium Potassium Chloride Carbon Dioxide Anion Gap BUN Creatinine Est GFR (CKD-EPI)AfAm Est GFR (CKD-EPI)NonAf POC Glucometer 116 118 114 Random Glucose Calcium Phosphorus Magnesium 12/13/18 12/13/18 12/13/18 05:22 06:05 06:05 WBC 7.8 RBC 4.21 Hgb 12.8 Hct 38.6 MCV 91.7 MCH 30.3 MCHC 33.1 RDW 13.8 Plt Count 246 MPV 7.7 Sodium 142 Potassium 4.4 Chloride 111 H Carbon Dioxide 25 Anion Gap 6 L BUN 18 Creatinine 0.9 Est GFR (CKD-EPI)AfAm 99.24 Est GFR (CKD-EPI)NonAf 85.63 POC Glucometer 122 Random Glucose 123 H Calcium 8.1 L Phosphorus 2.2 L Magnesium 2.1 Abd/Pelvis CTA: patent mesenteric vessels. +calc granulomas RML. +L hydro and stone UVJ 6mm. subcortical R cyst. hepatic steatosis. hiatal hernia. diverticulosis. +infiltration peripancreatic head fat HOSPITAL COURSE: Date of Admission:12/11/18 Date of Discharge: 12/13/18 73 y/o M with PMH HTN, HLD, NIDDM, nephrolithiasis s/p lithotripsy at [facility], who presents to the ED c/o sudden onset LLQ pain x1d. #L nephrolithiasis, obst stone with L hydronephrosis -6mm UVJ stone w L hydro -noted with a lactic acidosis at admission, now resolved -uro consulted: Dr. Ohara/Rob -conservative management was done initially. pt sxs improved, VSS. still has not passed stone. -per Uro, no intervention at this time will f/u outpt on 12/17/18 -c/w flomax, finasteride at dc #TACOS likely 2/2 obstruction - resolved, Cr 1.5....0.9 #HLD -c/w home 10 mg rosuvastatin at dc #NIDDM -resume metformin at dc pt stable and ready for dc w/ appropriate f/u Minutes to complete discharge: 39 Discharge Summary Reason For Visit: RENAL COLIC, ABDOMINAL PAIN Current Active Problems Renal colic (Acute) Condition: Improved - Instructions Diet, Activity, Other Instructions: you came in with a kidney stone. we gave you pain meds and IV fluids. your symptoms improved and no surgical intervention was indicated at this time. Urology Dr. Rivas will see you in his office for further care and monitoring. Please see him next week, on Sunday of 12/17/18 Please resume your home meds Follow up with the following physicians: Primary care physician in [address] Rivas Sunday12/17/18 If you experience any fevers, chills, chest pain, abdominal pain, nausea, vomit , blood in your urine, call 911 or go to the ER. Referrals: Omega Rivas MD., [Staff Physician] - 12/17/18 Disposition: HOME - Home Medications Comprehensive Discharge Medication List: Ambulatory Orders Aspirin [Aspirin EC] 81 mg PO DAILY 12/11/18 Finasteride 5 mg PO DAILY 12/11/18 Losartan Potassium [Cozaar -] 50 mg PO DAILY 12/11/18 Metformin HCl [Glucophage] 1,000 mg PO DAILY 12/11/18 Rosuvastatin Calcium [Crestor] 10 mg PO DAILY 12/11/18 Tamsulosin HCl [Flomax] 0.4 mg PO DAILY 12/11/18 This patient is new to me today: Yes Date on this admission: 12/13/18 Emergency Visit: Yes ED Registration Date: 12/11/18 Care time: The patient presented to the Emergency Department on the above date and was hospitalized for further evaluation of their emergent condition. Critical Care patient: No - Discharge Referral Referred to [facility] No
--- NOTE | 2018-12-13 14:50 | PN ---
Teaching Attending Note Name of Resident: Amilcar Bradley ATTENDING PHYSICIAN STATEMENT I saw and evaluated the patient. I reviewed the resident's note and discussed the case with the resident. I agree with the resident's findings and plan as documented. SUBJECTIVE: Patient is a comfortable with no acute distress, no further pain. OBJECTIVE: Vital Signs Temperature 98.7 F 12/13/18 08:44 Pulse Rate 64 12/13/18 08:44 Respiratory Rate 20 12/13/18 08:44 Blood Pressure 129/61 12/13/18 08:44 O2 Sat by Pulse Oximetry (%) 98 12/12/18 09:00 GENERAL: Pleasant. Awake, alert, and fully oriented, in no acute distress. HEAD: Normal with no signs of trauma. EYES: Pupils equal, round and reactive to light, extraocular movements intact, sclera anicteric, conjunctiva clear. EARS, NOSE, THROAT: Ears normal, oropharynx clear without exudates. Moist mucous membranes. NECK: Normal range of motion, supple LUNGS: Breath sounds equal, clear to auscultation bilaterally. No W/C/R . No accessory muscle use. HEART: Regular rate and rhythm, normal S1 and S2. DANTE 2/ ABDOMEN: Soft, obese. not distended, normoactive bowel sounds, no guarding. MSK: no CVA tenderness today EXTREMITIES: 2+ pt pulses, warm, well-perfused. No calf tenderness. No peripheral edema. NEUROLOGICAL: Cranial nerves II-XII intact. Normal speech. CBCD WBC 7.8 K/mm3 (4.0-10.0) 12/13/18 06:05 RBC 4.21 M/mm3 (4.00-5.60) 12/13/18 06:05 Hgb 12.8 GM/dL (11.7-16.9) 12/13/18 06:05 Hct 38.6 % (35.4-49) 12/13/18 06:05 MCV 91.7 fl (80-96) 12/13/18 06:05 MCHC 33.1 g/dl (32.0-35.9) 12/13/18 06:05 RDW 13.8 % (11.9-15.9) 12/13/18 06:05 Plt Count 246 K/MM3 (134-434) 12/13/18 06:05 MPV 7.7 fl (7.5-11.1) 12/13/18 06:05 CMP Sodium 142 mmol/L (136-145) 12/13/18 06:05 Potassium 4.4 mmol/L (3.5-5.1) 12/13/18 06:05 Chloride 111 mmol/L (98-107) H 12/13/18 06:05 Carbon Dioxide 25 mmol/L (21-32) 12/13/18 06:05 Anion Gap 6 MMOL/L (8-16) L 12/13/18 06:05 BUN 18 mg/dL (7-18) 12/13/18 06:05 Creatinine 0.9 mg/dL (0.55-1.3) 12/13/18 06:05 Creat Clearance w eGFR 46.13 (>60) 12/11/18 04:37 Random Glucose 123 mg/dL (74-106) H 12/13/18 06:05 Calcium 8.1 mg/dL (8.5-10.1) L 12/13/18 06:05 Total Bilirubin 0.3 mg/dL (0.2-1) 12/11/18 04:37 AST 19 U/L (15-37) 12/11/18 04:37 ALT 24 U/L (13-61) 12/11/18 04:37 Alkaline Phosphatase 51 U/L (45-117) 12/11/18 04:37 Total Protein 7.0 g/dl (6.4-8.2) 12/11/18 04:37 Albumin 4.0 g/dl (3.4-5.0) 12/11/18 04:37 Home Medications Medication Instructions Recorded Aspirin [Aspirin EC] 81 mg PO DAILY 12/11/18 Finasteride 5 mg PO DAILY 12/11/18 Losartan Potassium [Cozaar -] 50 mg PO DAILY 12/11/18 Metformin HCl [Glucophage] 1,000 mg PO DAILY 12/11/18 Rosuvastatin Calcium [Crestor] 10 mg PO DAILY 12/11/18 Tamsulosin HCl [Flomax] 0.4 mg PO DAILY 12/11/18 Abd/Pelvis CTA: patent mesenteric vessels. +calc granulomas RML. +L hydro and stone UVJ 6mm. subcortical R cyst. hepatic steatosis. hiatal hernia. diverticulosis. positive for infiltration peripancreatic head fat ASSESSMENT/PLAN: Patient is a 73yo male with PMHx of HTN, HLD, NIDDM, nephrolithiasis s/p lithotripsy at [facility]. who presents to the ED c/o sudden onset LLQ pain that started last night. #Acute left nephrolithiasis with obstructing stone on CTA of abdomens and pelvis causing L hydronephrosis: 6mm UVJ stone , acosta catheter, IVF, continue flomax, finasteride, strain all urine, Trend lactic. trending down. 5>2.5>2.2-- > 1.0-->0.9 seen by urologist. possible Lithotripsy as per Urologist. Patient is feeling better , will discharge the patient with follow up visit to urologist for possible lithotripsy as an outpatient. This Sunday to see the urologist explained to the patient #TACOS : improved continue ARB. now #HLD continue crestor #T2dm: continue metformin discharge patient home
== END 2018-12-13 12:59 | disposition home or self-care (01) | DRG 683 ==
LOC: JER 03:55 → JERBED 07:19 → J6S 15:45
PROVIDERS: ADMIT Internal Medicine; ATTEND Internal Medicine
DX: N17.9 Acute kidney failure, unspecified (principal); E87.2 Acidosis; N13.2 Hydronephrosis with renal and ureteral calculous obstruction; I10 Essential (primary) hypertension; E11.9 Type 2 diabetes mellitus without complications; Z90.49 Acquired absence of other specified parts of digestive tract; Z79.84 Long term (current) use of oral hypoglycemic drugs; K76.0 Fatty (change of) liver, not elsewhere classified; K57.30 Diverticulosis of large intestine without perforation or abscess without bleeding; K44.9 Diaphragmatic hernia without obstruction or gangrene; E78.5 Hyperlipidemia, unspecified
CPT/HCPCS: 36415; 74174-TC; 80048; 80053; 81003; 82962; 83605; 83690; 83735; 84100; 85025; 85027; 85610; 85730; 86850; 86900; 86901; 99283-25; J0131; J7030